=== PATIENT | female | born 2000 | race American Indian/Alaskan Native ===

== ENCOUNTER 2021-06-03 10:07 | Emergency (ER) | payer SELFPAY ==
--- NOTE | 2021-06-03 10:52 | Emergency Department Report ---
ED ENT HPI - General Chief complaint: Sore Throat Stated complaint: SORE THROAT, SWOLLEN RIGHT TONSIL, RIGHT EAR PAIN Time Seen by Provider: 06/03/21 10:25 Source: patient Mode of arrival: Ambulatory Limitations: No Limitations - History of Present Illness Initial comments: Patient is a 21-year-old female presents emergency room complaints of a sore thr oat that began 3 days ago. She states that she feels like her tonsils are swollen. She states that she also has right-sided ear pain. Patient states that she had a fever of 101 last night and took ibuprofen. She denies any cough, shortness of breath, diarrhea. Patient states that she has a past medical history of frequent tonsillitis and previously saw ENT doctor and was recommended for a tonsillectomy but reports that her mother elected against tonsillectomy. No allergies to medications. Last menstrual cycle 05/07/2021, patient is concerned that she may be , she denies any abdominal pain or vaginal bleeding. - Related Data Previous Rx's Medication Instructions Recorded Last Taken Type Amoxicillin [Trimox] 500 mg PO BID 10 Days #40 capsule 06/03/21 Unknown Rx Allergies Allergy/AdvReac Type Severity Reaction Status Date / Time No Known Allergies Allergy Verified 06/03/21 10:42 ED Dental HPI - General Chief complaint: Sore Throat Stated complaint: SORE THROAT, SWOLLEN RIGHT TONSIL, RIGHT EAR PAIN Time Seen by Provider: 06/03/21 10:25 Source: patient Mode of arrival: Ambulatory Limitations: No Limitations - Related Data Previous Rx's Medication Instructions Recorded Last Taken Type Amoxicillin [Trimox] 500 mg PO BID 10 Days #40 capsule 06/03/21 Unknown Rx Allergies Allergy/AdvReac Type Severity Reaction Status Date / Time No Known Allergies Allergy Verified 06/03/21 10:42 ED Review of Systems ROS: Stated complaint: SORE THROAT, SWOLLEN RIGHT TONSIL, RIGHT EAR PAIN Other details as noted in HPI Comment: All other systems reviewed and negative ED Past Medical Hx - Past Medical History Previous Medical History?: No - Surgical History Past Surgical History?: No - Social History Smoking Status: Never Smoker Substance Use Type: Marijuana - Medications Home Medications: Home Medications Medication Instructions Recorded Confirmed Last Taken Type Amoxicillin [Trimox] 500 mg PO BID 10 Days #40 capsule 06/03/21 Unknown Rx ED Physical Exam - General Limitations: No Limitations General appearance: alert, in no apparent distress - Head Head exam: Present: atraumatic, normocephalic - Eye Eye exam: Present: normal appearance - ENT ENT exam: Present: mucous membranes moist, TM's normal bilaterally, normal external ear exam, other (posterior oropharynx erythema, mild tonsillar hypertrophy and exudates, uvula is midline, no uvular edema or deviation, no trismus, no tongue elevation, no muffled voice, no submandibular edema) - Neck Neck exam: Present: full ROM. Absent: meningismus - Respiratory Respiratory exam: Present: normal lung sounds bilaterally. Absent: respiratory distress, wheezes, rales, rhonchi, stridor, chest wall tenderness, accessory muscle use, decreased breath sounds, prolonged expiratory - Cardiovascular Cardiovascular Exam: Present: regular rate, normal rhythm, normal heart sounds. Absent: systolic murmur, diastolic murmur, rubs, gallop - Neurological Exam Neurological exam: Present: alert, oriented X3 - Psychiatric Psychiatric exam: Present: normal affect, normal mood - Skin Skin exam: Present: warm, dry, intact ED Course Vital Signs 06/03/21 06/03/21 10:43 11:44 Temperature 99.4 F 98.7 F Pulse Rate 80 88 Respiratory 16 16 Rate Blood Pressure 124/75 Blood Pressure 121/80 [Right] O2 Sat by Pulse 96 99 Oximetry ED Medical Decision Making - Medical Decision Making Patient is a 21-year-old female presents emergency room complaints of a sore throat that began 3 days ago. She states that she feels like her tonsils are swollen. She states that she also has right-sided ear pain. Patient states jai t she had a fever of 101 last night and took ibuprofen. She denies any cough, shortness of breath, diarrhea. Patient states that she has a past medical history of frequent tonsillitis and previously saw ENT doctor and was recommended for a tonsillectomy but reports that her mother elected against tonsillectomy. No allergies to medications. Last menstrual cycle 05/07/2021, patient is concerned that she may be , she denies any abdominal pain or vaginal bleeding. Vitals are normal. On exam:posterior oropharynx erythema, mild tonsillar hypertrophy and exudates, uvula is midline, no uvular edema or deviation, no trismus, no tongue elevation, no muffled voice, no submandibular edema, TMs and canals are normal bilaterally. Rapid strep is negative. Patient has clinical signs of tonsillitis and had a fever last night, will cover with antibiotics. Patient is requesting Decadron shot, she does have tonsillar hypertrophy but no airway compromise, given 8 mg IM Decadron. Advised patient Please take medication as prescribed. Increase your fluid intake. Gargle with warm salt water. May suck on throat lozenges. Throw away your toothbrush. Do not drink after others or allow others to drink after you. Follow-up with your primary care doctor. Follow-up with ear nose and throat doctor. Return to emergency room for any new or worsening symptoms. Critical care attestation.: If time is entered above; I have spent that time in minutes in the direct care of this critically ill patient, excluding procedure time. ED Disposition Clinical Impression: Tonsillitis Disposition: 01 HOME / SELF CARE / HOMELESS Is pt being admited?: No Does the pt Need Aspirin: No Condition: Stable Instructions: Tonsillitis, [id number] Additional Instructions: Please take medication as prescribed. Increase your fluid intake. Gargle with warm salt water. May suck on throat lozenges. Throw away your toothbrush. Do not drink after others or allow others to drink after you. Follow-up with your primary care doctor. Follow-up with ear nose and throat doctor. Return to emergency room for any new or worsening symptoms. Prescriptions: Amoxicillin [Trimox] 500 mg PO BID 10 Days #40 capsule Referrals: PRIMARY MD HUBERT [Primary Care Provider] - 3-5 Days RICKY ROBERTSON MD [Staff Physician] - 3-5 Days MICKEY CRUZ MD [Referring] - 3-5 Days Time of Disposition: 11:36 Print Language: [place]
[2021-06-03 11:32] LABS: HCG Qualitative,Urine Negative (Negative)
[2021-06-03] MEDS ORDERED: dexAMETHasone 4 MG/ML VIAL IM ONE (11:41)
[2021-06-03 11:50] VITALS: BP 124/75
== END 2021-06-03 11:50 | disposition home or self-care (01) ==
LOC: ED 10:07
DX: J03.90 Acute tonsillitis, unspecified (principal); F12.90 Cannabis use, unspecified, uncomplicated; Z79.899 Other long term (current) drug therapy
CPT/HCPCS: 81025; 87116; 87430; 96372; 99283; J1100

== ENCOUNTER 2021-07-07 17:29 | Emergency (ER) | payer SELFPAY ==
--- NOTE | 2021-07-07 18:10 | Emergency Department Report ---
ED General Adult HPI - General Chief complaint: Headache Stated complaint: Headache Time Seen by Provider: 07/07/21 17:57 Source: patient Mode of arrival: Ambulatory Limitations: No Limitations - History of Present Illness Initial comments: Patient is a 21-year-old female presents emergency room complaints of frontal headache that began 3 days ago. She has associated nasal congestion and mild rhinorrhea. She denies any fever, vision changes, neck stiffness, vomiting, numbness, weakness, speech disturbance, gait disturbance, cough, sore throat, ear pain. PMHx migraines. No allergies to medications. [facility] June 2021. - Related Data Previous Rx's Medication Instructions Recorded Last Taken Type Amoxicillin [Trimox] 500 mg PO BID 10 Days #40 capsule 06/03/21 Unknown Rx Butalb/Acetaminophen/Caffeine 1 cap PO Q8HR PRN #10 cap 07/07/21 Unknown Rx [Fioricet 50-300-40 mg CAP] Fluticasone [Flonase] 1 spray NS QDAY #1 bottle 07/07/21 Unknown Rx Loratadine 10 mg PO DAILY #10 tablet 07/07/21 Unknown Rx guaiFENesin ER [Mucinex ER] 600 mg PO Q12H #14 tablet.er 07/07/21 Unknown Rx Allergies Allergy/AdvReac Type Severity Reaction Status Date / Time No Known Allergies Allergy Verified 06/03/21 10:42 ED Review of Systems ROS: Stated complaint: Headache Other details as noted in HPI Comment: All other systems reviewed and negative ED Past Medical Hx - Social History Smoking Status: Never Smoker Substance Use Type: Marijuana - Medications Home Medications: Home Medications Medication Instructions Recorded Confirmed Last Taken Type Amoxicillin [Trimox] 500 mg PO BID 10 Days #40 capsule 06/03/21 Unknown Rx Butalb/Acetaminophen/Caffeine 1 cap PO Q8HR PRN #10 cap 07/07/21 Unknown Rx [Fioricet 50-300-40 mg CAP] Fluticasone [Flonase] 1 spray NS QDAY #1 bottle 07/07/21 Unknown Rx Loratadine 10 mg PO DAILY #10 tablet 07/07/21 Unknown Rx guaiFENesin ER [Mucinex ER] 600 mg PO Q12H #14 tablet.er 07/07/21 Unknown Rx ED Physical Exam - General Limitations: No Limitations General appearance: alert, in no apparent distress - Head Head exam: Present: atraumatic, normocephalic - Eye Eye exam: Present: normal appearance - ENT ENT exam: Present: normal orophraynx, mucous membranes moist, TM's normal bilaterally, normal external ear exam, other (frontal sinus ttp bilaterally) - Respiratory Respiratory exam: Present: normal lung sounds bilaterally. Absent: respiratory distress, wheezes, rales, rhonchi, stridor, chest wall tenderness, accessory muscle use, decreased breath sounds - Cardiovascular Cardiovascular Exam: Present: regular rate, normal rhythm, normal heart sounds. Absent: systolic murmur, diastolic murmur, rubs, gallop - Neurological Exam Neurological exam: Present: alert, oriented X3 - Psychiatric Psychiatric exam: Present: normal affect, normal mood - Skin Skin exam: Present: warm, dry, intact ED Course Vital Signs 07/07/21 07/07/21 17:32 18:32 Temperature 98.2 F 98.5 F Pulse Rate 79 70 Respiratory 16 16 Rate Blood Pressure 112/75 Blood Pressure 119/75 [Right] O2 Sat by Pulse 100 100 Oximetry ED Medical Decision Making - Medical Decision Making Patient is a 21-year-old female presents emergency room complaints of frontal headache that began 3 days ago. She has associated nasal congestion and mild rhinorrhea. She denies any fever, vision changes, neck stiffness, vomiting, numbness, weakness, speech disturbance, gait disturbance, cough, sore throat, ear pain. PMHx migraines. No allergies to medications. LN June 2021. Vitals are normal. On exam patient has frontal sinus tenderness palpation. Symptoms have only been occurring for 3 days, she has no fever, do not suspect bacterial sinusitis at this time, patient given prescription for medication, discussed the importance of outpatient primary care follow-up, discussed return precautions and to return if symptoms are lasting greater than 10 days. Advised patient Please take medication as prescribed. Follow-up with a primary care doctor. Return to emergency room for any new or worsening symptoms. Critical care attestation.: If time is entered above; I have spent that time in minutes in the direct care of this critically ill patient, excluding procedure time. ED Disposition Clinical Impression: Sinusitis Qualifiers: Sinusitis location: frontal Chronicity: acute Recurrence: non-recurrent Qualified Code(s): J01.10 - Acute frontal sinusitis, unspecified Headache Qualifiers: Headache type: unspecified Headache chronicity pattern: acute headache Intractability: not intractable Qualified Code(s): R51.9 - Headache, unspecified Disposition: 01 HOME / SELF CARE / HOMELESS Is pt being admited?: No Does the pt Need Aspirin: No Condition: Stable Instructions: Sinusitis, Adult, [id number] Additional Instructions: Please take medication as prescribed. Follow-up with a primary care doctor. Return to emergency room for any new or worsening symptoms. Prescriptions: Butalb/Acetaminophen/Caffeine [Fioricet 50-300-40 mg CAP] 1 cap PO Q8HR PRN #10 cap PRN Reason: headache Fluticasone [Flonase] 1 spray NS QDAY #1 bottle Loratadine 10 mg PO DAILY #10 tablet guaiFENesin ER [Mucinex ER] 600 mg PO Q12H #14 tablet.er Referrals: AMOS EASTON MD [Staff Physician] - 3-5 Days [facility] [Provider Group] - 3-5 Days [facility], [LAB/CONTRACT] - 3-5 Days [facility] [Outside] - 3-5 Days Time of Disposition: 18:08 Print Language: [place]
[2021-07-07 18:37] VITALS: BP 119/75
== END 2021-07-07 18:38 | disposition home or self-care (01) ==
LOC: ED 17:29
DX: J01.10 Acute frontal sinusitis, unspecified (principal)
CPT/HCPCS: 99282

== ENCOUNTER 2021-09-18 12:31 | Emergency (ER) | payer SELFPAY ==
[2021-09-18 13:07] VITALS: BP 109/68
== END 2021-09-18 15:27 | disposition left against medical advice (07) ==
LOC: ED 12:31
DX: O21.9 Vomiting of pregnancy, unspecified (principal); Z53.21 Procedure and treatment not carried out due to patient leaving prior to being seen by health care provider; Z3A.00 Weeks of gestation of pregnancy not specified